=== PATIENT | male | born 1965 | race African-American/Black ===

== ENCOUNTER 2020-08-05 13:59 | Emergency (ER) | payer OTHER ==
[~2020-08-05] VITALS: Ht 157.5 cm; Wt 93.9 kg
[~2020-08-05 13:59] MED LIST: LIDODERM700 M1 TOPIC; TYLENOL EXTRA500 MG ORAL
[2020-08-05 14:28] VITALS: BP 148/80
[2020-08-05] MEDS ORDERED: ALEVE220 M2 PO (14:31)
[2020-08-05 15:26] LABS: APPEARANCE,URINE CLEAR; BILIRUBIN, URINE NEGATIVE (NEGATIVE); COLOR,URINE PALE YELLOW; GLUCOSE, URINE (UA) NEGATIVE (NEGATIVE); KETONES,URINE NEGATIVE (NEGATIVE); LEUKOCYTE ESTERASE ,URINE NEGATIVE (NEGATIVE); NITRITE,URINE NEGATIVE (NEGATIVE); PH,URINE 6 (4.5-8.0); PROTEIN,URINE NEGATIVE (NEGATIVE); UROBILINOGEN,URINE NORMAL MG/DL (0.0-1.0)
--- NOTE | 2020-08-05 15:37 | Emergency Room Report ---
History of Present Illness General Chief Complaint: Pain Present Illness HPI 54-year-old female with no significant past medical history here complaining of 2 days of right sided suprapubic and upper abdominal pain around the rib cage which started after lifting heavy furniture and carpet. Denies any urinary symptoms, fever and chills, diarrhea, however complains of being bloated for the past several weeks on and off and has not yet followed with primary doctor. Refuses blood work. Denies chest pain, shortness of breath, headache and dizziness. Has not taken medication for symptom relief. Denies any fall or injury. Denies any history of abdominal surgeries. Denies alcohol intake, tobacco smoke, drug use. Allergies: Coded Allergies: No Known Allergies (Unverified , 09/30/19) COVID-19 Screening Contact w/high risk pt: No Experienced COVID-19 symptoms?: No COVID-19 Testing performed DETAILER FURNITURE: No Patient History Past Medical History: see triage record Past Surgical History: none Pertinent Family History: none Immunizations: UTD Reviewed Nursing Documentation: PMH: Agreed; PSxH: Agreed Nursing Documentation-PMH Hx Cardiac Problems: Yes - heart murmur Review of Systems All Other Systems: negative except mentioned in HPI Physical Exam Vital Signs Date Time Temp Pulse Resp B/P (MAP) Pulse Ox O2 Delivery O2 Flow Rate FiO2 08/05/20 14:28 98.2 61 18 148/80 (102) 96 Room Air Sp02 EP Interpretation: reviewed, normal General Appearance: no apparent distress, alert, GCS 15, non-toxic Head: normocephalic, atraumatic Eyes: bilateral eye normal inspection, bilateral eye PERRL ENT: hearing grossly normal, normal pharynx, no angioedema, normal voice Neck: full range of motion, supple/symm/no masses Respiratory: chest non-tender, lungs clear, normal breath sounds, no rhonchi, no respiratory distress, no retraction, no wheezing, speaking full sentences Cardiovascular #1: regular rate, rhythm, no edema Cardiovascular #2: 2+ carotid (R), 2+ carotid (L), 2+ radial (R), 2+ radial (L), 2+ dorsalis pedis (R), 2+ dorsalis pedis (L) Gastrointestinal: normal bowel sounds, non tender, soft, non-distended, no guarding, no rebound Rectal: deferred Genitourinary: no CVA tenderness Musculoskeletal: back normal, normal range of motion, no calf tenderness, gait/station normal, non-tender Neurologic: alert, motor strength/tone normal, oriented x3, sensory intact, responsive, speech normal Psychiatric: judgement/insight normal, memory normal, mood/affect normal, no suicidal/homicidal ideation Skin: no rash Lymphatic: no adenopathy Medical Decision Making PA Attestation Diagnosis and treatment plans were reviewed and discussed with my supervising physician Dr. Ro Diagnostic Impression: Primary Impression: Muscle strain Additional Impression: Flatulence symptom ER Course 54-year-old female with no significant past medical history here complaining of 2 days of right sided suprapubic and upper abdominal pain around the rib cage which started after lifting heavy furniture and carpet. Denies any urinary symptoms, fever and chills, diarrhea, however complains of being bloated for the past several weeks on and off and has not yet followed with primary doctor. Re fuses blood work. Denies chest pain, shortness of breath, headache and dizziness. Has not taken medication for symptom relief. Denies any fall or injury. Denies any history of abdominal surgeries. Denies alcohol intake, tobacco smoke, drug use. Ddx considered but are not limited to: UTI, pyelonephritis, muscle strain, appendicitis, cholecystitis Vital signs: are WNL, pt. is afebrile H&PE are most consistent with: Muscle strain, fluctuance ORDERS: UA, urine cx, dicyclomine, Robaxin, Motrin,lidocaine patch ED INTERVENTIONS: None required at this time. DISCHARGE: At this time pt. is stable for d/c to home. Will provide printed patient care instructions, and any necessary prescriptions. Care plan and follow up instructions have been discussed with the patient prior to discharge. Advised patient to get blood work done by primary doctor since patient did not want to get any blood work done here and take medication as directed as he might be an internal abdominal abnormality however due to the nature when the patient started feeling pain right after lifting heavy objects it is mostly straining of muscles and patient is nontender in that area. If worsening symptoms return to the emergency room Last Vital Signs Date Time Temp Pulse Resp B/P (MAP) Pulse Ox O2 Delivery O2 Flow Rate FiO2 08/05/20 14:28 98.2 61 18 148/80 96 Room Air Disposition: HOME, SELF-CARE Condition: Stable Scripts Lidocaine Patch* (Lidoderm Patch*) 1 Each Adh..patch 1 PATCH TOPIC DAILY, #30 PATCH Patch(es) may remain in place for up to 12 hours in any 24-hour period. Prov: Joycelyn Barron 08/05/20 Ibuprofen* (MOTRIN*) 600 Mg Tablet 600 MG ORAL Q6H PRN for For Pain, #30 TAB 0 Refills Prov: Joycelyn Barron 08/05/20 Methocarbamol* (ROBAXIN-500*) 500 Mg Tablet 500 MG ORAL TID PRN for For Pain, #15 TAB 0 Refills Prov: Joycelyn Barron 08/05/20 Dicyclomine Hcl* (DICYCLOMINE HCL*) 10 Mg Capsule 10 MG ORAL QID, #20 CAP Prov: Joycelyn Barron 08/05/20 Patient Instructions: Muscle Strain, [id number] Additional Instructions: Take medication as directed, follow-up with primary care provider, increase oral hydration, for subsequently sent to emergency room. If symptoms continue you may need blood work and further evaluation and scanning. Joycelyn Barron Aug 05, 2020 15:37
[2020-08-05] MEDS ORDERED: LIDODERM700 M1 TOPIC (15:39)
[2020-08-05] MEDS ORDERED: IBUPROFEN600 M1 ORAL (15:39)
[2020-08-05] MEDS ORDERED: DICYCLOMINE HCL10 MG ORAL (15:39)
[2020-08-05] MEDS ORDERED: ROBAXIN-500MG ORAL (15:39)
[2020-08-05 15:45] VITALS: BP 139/85
== END 2020-08-05 15:45 | disposition home or self-care (01) ==
LOC: EMR 15:36
DX: R14.3 Flatulence (principal); T14.8XXA Other injury of unspecified body region, initial encounter; R07.81 Pleurodynia; R10.10 Upper abdominal pain, unspecified; X50.0XXA Overexertion from strenuous movement or load, initial encounter; Y92.9 Unspecified place or not applicable
CPT/HCPCS: 81003; 99282